=== PATIENT | male | born 1995 | race Caucasian/White ===

== ENCOUNTER 2018-05-31 00:03 | Emergency (ER) | payer OTHER ==
[~2018-05-31] VITALS: Ht 177.8 cm; Wt 77.3 kg
[2018-05-31 03:20] VITALS: BP 122/80
== END 2018-05-31 03:21 | disposition home or self-care (01) ==
LOC: EMS 00:05
DX: S31.21XA Laceration without foreign body of penis, initial encounter (principal); X58.XXXA Exposure to other specified factors, initial encounter; Y93.89 Activity, other specified; Y92.89 Other specified places as the place of occurrence of the external cause; Y99.8 Other external cause status